=== PATIENT | female | born 1940 | race Caucasian/White ===

== ENCOUNTER 2016-08-07 16:59 | Emergency (ER) | payer MEDICARE ==
[~2016-08-07] VITALS: Ht 165.1 cm; Wt 91.8 kg
[~2016-08-07 16:59] MED LIST: ALBU8.5H2 INHALATION; ALEN70TA2 PO; ASCO-294 PO; ASTELIN NASAL SPRAY INH; BENZ-12 PO; BENZ200C44 PO; CALC-190 PO; CETI10TA27 PO; CHOL100045 PO; CYAN10008 PO; ECON15CR10 TOP; FLUT12AE8 IH; FLUT9.9S NS; LEVO750T9 PO; MEMA5TAB15 PO; METF850T2 PO; METO25TA6 PO; MONT10TA20 PO; MULT-1018 PO; OMEP20CA11 PO; OXYB5TAB PO; PRAV40TA PO; PRE20 PO
[2016-08-07 17:09] VITALS: BP 141/63; PULSE 61; RESP 15; O2SAT 98
[2016-08-07 18:06] VITALS: BP 115/40; PULSE 58; RESP 20; O2SAT 98
--- NOTE | 2016-08-07 18:37 | ED.REPORT ---
HPI-URI / Cough / Cold Date of Service Aug 07, 2016 ED Provider: Debra Hernandez History of Present Illness: cough for a month, stuffy nose. chayo is primary care. neighbors were burning garbage outside today. Has been doing tessalon perles and albuterol which she reports have been helpful. Nursing Notes Stated Complaint: COUGH/RUNNY NOSE Chief Complaint: Respiratory Complaints Nursing Notes Reviewed: Yes Allergies: Coded Allergies: latex (Verified Allergy, Severe, Itching/RASH, 08/07/16) metoclopramide (Verified Allergy, Severe, CONVULSIONS (SEVERES "SHAKES"), 08/07/16) tetracycline (Verified Allergy, Severe, HIVES (LOCAL RXN TO IM INJECTION) , 08/07/16) erythromycin ethylsuccinate (Verified Allergy, Unknown, UNKNOWN, 08/07/16) fluticasone (Verified Allergy, Unknown, UNKNOWN, 08/07/16) salmeterol (Verified Allergy, Unknown, UNKNOWN, 08/07/16) clonidine (Verified Adverse Reaction, Severe, "GROGGY", 08/07/16) codeine (Verified Adverse Reaction, Severe, HALLUCINATIONS, 08/07/16) Uncoded Allergies: "scents" (Allergy, Unknown, UNKNOWN, 12/09/15) Scheduled ([Astelin Nasal [place]]) 1 SPRAY INH BID Albuterol HFA (Proair HFA) 8.5 Gm Hfa.aer.ad 2 PUFFS INHALATION Q4H Alendronate Sodium (Fosamax) 70 Mg Tablet 70 MG PO WEEKLY Ascorbate Calcium (Vitamin C) 500 Mg Tablet 500 MG PO DAILY Calcium Carb&Cit/Mag12/Vit D3 (Calcium 500 mg Tablet) 1 Each Tablet 1 EACH PO BID Cetirizine HCl (All Day Allergy) 10 Mg Tab.chew 10 MG PO DAILY Cholecalciferol (Vitamin D3) (Vitamin D) 1,000 Unit Capsule 1,000 UNIT PO DAILY Cyanocobalamin (Vitamin B-12) (Vitamin B-12) 1,000 Mcg Tablet 1,000 MCG PO DAILY Econazole Nitrate (Econazole Nitrate) 15 Gm Cream..g. 1 APPL TOP BID Econazole Nitrate (Econazole Nitrate) 15 Gm Cream..g. 1 APPL TOP BID Fluticasone Propionate (Flovent HFA 110 mcg) 12 Gm Aer.w.adap 1 PUFF IH BID Fluticasone Propionate (Flonase Allergy Relief) 50 Mcg/Actuation [place].susp 9.9 ML NS BID Levofloxacin (Levaquin) 750 Mg Tablet 750 MG PO DAILY Memantine HCl (Memantine HCl) 5 Mg Tablet 5 MG PO DAILY Metformin (Metformin) 850 Mg Tablet 850 MG PO BIDWM Metoprolol Tartrate (Metoprolol Tartrate) 25 Mg Tablet 25 MG PO BID Montelukast (Singulair) 10 Mg Tablet 10 MG PO HS Multivitamin (Multi Vitamin Daily) 1 Each Tablet 1 EACH PO DAILY Omeprazole (Omeprazole) 20 Mg Capsule.dr 20 MG PO BID Oxybutynin Chloride ER (Oxybutynin Chloride ER) 5 Mg Tab.er.24 5 MG PO DAILY Pravastatin (Pravastatin) 40 Mg Tablet 40 MG PO HS Scheduled PRN Benzonatate (Benzonatate) 200 Mg Capsule 200 MG PO Q8H PRN PRN PRN Benzonatate (Tessalon Perle) 100 Mg Capsule 200 MG PO TID PRN PRN For Cough Prednisone (PredniSONE) 20 Mg Tablet 60 MG PO DAILY PRN PRN For Cough General Time Seen by MD: 18:13 Chief Complaint Cough, productive... (Yellow) Hx Obtained From: Patient Onset Occurred: More than a week ago... 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 Shoulder surgery bilateral cataract extraction 12/12/15 bilateral retrogrades pyelogram with cytology, right ureteroscopy, right stent placement Reports: Cholecystectomy, Hysterectomy, Tonsillectomy Family History noncontributory Smoking History Former Smoker Social History Alcohol Use: Denies alcohol use Drug Use: Denies drug use Other Social History: Ambulatory Status Walker Review of Systems Basic Review of Systems Cardiovascular: No chest pain, No dyspnea on exertion, No orthopnea, No parox noct dyspnea, No palpitations : No dysuria, No frequency Musculoskeletal: No extremity swelling, No extremity pain, Full range of motion , Joints NL Hematologic: No bleeding, No bruising Endocrine: No cold intolerance, No heat intolerance, No weight gain, No weight loss Psychiatric: Normal thought content Physical Exam Initial Vital Signs Vital Signs (First) Date Time Temp Pulse Resp B/P Pulse Ox O2 Delivery O2 Flow Rate FiO2 08/07/16 17:09 36.2 61 15 141/63 98 Room Air Initial VS: Reviewed, Vital signs normal Head / Eyes: Atraumatic, Normocephalic, PERRL Neck: Supple, Non-tender, Full range of motion Cardiovascular: Regular rate & rhythm, Heart sounds normal, Intact distal pulses Abdomen / GI: Soft, Non-tender, No guarding, No rebound, No distention Back: No CVA tenderness Lymphatic: No lymphadenopathy Extremities: Vascular intact, Neuro intact, No swelling, No tenderness Skin: Warm, Dry, No cyanosis Neurologic: Alert, Oriented, Nonfocal Psychiatric: Mood/affect normal, Behavior normal, Normal thought content General/Constitutional: Awake, Alert, No acute distress ENT: Atraumatic, Airway patent, Mucous membranes moist, Pharynx NL Respiratory / Chest: Atraumatic, Breath sounds NL, Breath sounds = bilat, No respiratory distress, No rales, No rhonchi Head / Eyes: Atraumatic, Normocephalic, PERRL Cardiovascular: Heart rate NL, Regular rhythm, Heart sounds NL Interpretation & Diagnostics Lab Results Interpretation Result Diagram: 08/07/16 1851 08/07/16 1851 Test 08/07/16 18:51 White Blood Count 5.2th/mm3 (3.8-10.1) Red Blood Count 3.38mil/mm3 (3.90-5.20) Hemoglobin 11.1g/dL (12.0-15.6) Hematocrit 34.6% (35.0-46.0) Mean Corpuscular Volume 102.4fL (81-100) Mean Corpuscular Hemoglobin 32.8pg (27.0-35.0) Mean Corpuscular Hemoglobin Concent 32.1% (32.0-37.0) Red Cell Distribution Width 12.5% (12.3-15.4) Platelet Count 190bil/L (150-400) Neutrophils (%) (Auto) 51.7% (40-74) Lymphocytes (%) (Auto) 37.9% (14-46) Monocytes (%) (Auto) 9.0% (4-12) Eosinophils (%) (Auto) 1.0% (0-5) Basophils (%) (Auto) 0.2% (0-3) Sodium Level 141mEq/L (134-144) Potassium Level 4.3mEq/L (3.5-5.2) Chloride Level 102mEq/L (97-108) Carbon Dioxide Level 28mmol/L (18-29) Blood Urea Nitrogen 16mg/dL (8-27) Creatinine 0.59mg/dL (0.57-1.00) Estimat Glomerular Filtration Rate 142mL/min (>59) Glucose Level 151mg/dL (60-99) Calcium Level 9.1mg/dL (8.5-10.1) Total Bilirubin 0.3mg/dL (0.0-1.2) Aspartate Amino Transf (AST/SGOT) 19U/L (0-50) Alanine Aminotransferase (ALT/SGPT) 15U/L (0-32) Alkaline Phosphatase 66U/L (25-165) Troponin T < 0.010ug/L (0.0-0.011) Pro-B-Type Natriuretic Peptide 396.9pg/mL (0-738) Total Protein 5.5g/dL (6.4-8.4) Albumin 3.6g/dL (3.4-5.0) Hold Moeller Top Tube Received (Received) X-Ray Chest Interpretation Chest Xray Interpretation: Surgical changes and devices: None. Lungs and pleura: No pleural effusions or pneumothorax. Lungs are clear. Mediastinum: Mediastinal contours appear normal. Heart size is normal. There is a moderate sized hiatal hernia. Bones and chest wall: No suspicious bony lesions. Overlying soft tissues appear unremarkable. Old right humeral neck fracture noted. IMPRESSION: No acute disease. Moderate hiatal hernia. Re-Eval/Medical Decision Med Decision/Clinical Course Med Decision/Clinical Course: Normal EKG and negative trop and BNP. Will do a trial of antibiotics Differential Diagnosis: Negative: Pneumonia Discharge & Departure Impression: Primary Impression: Cough Disposition: Home Additional Instructions: Your labs are normal. The chest x-ray does not show any sign of infection but with the cough ongoing for 1 month a trial of antibiotics is indicated. Please follow with primary care as needed. REturn with any concerns. Referrals: Ed Perry MD (PCP) EDSupervising Provider for APC: Nirmal Jones MD copies to: Ed Perry MD, Sue ARNP Aug 07, 2016 18:37
--- NOTE | 2016-08-07 18:42 | DRSVH ---
PROCEDURE: X-RAY CHEST ONE VIEW, PORTABLE ([id number]) INDICATIONS: cough TECHNIQUE: One view of the chest was acquired. COMPARISON: [facility], CR, XR CHEST 2VW, 03/30/2016, 13:5.8 FINDINGS: Surgical changes and devices: None. Lungs and pleura: No pleural effusions or pneumothorax. Lungs are clear. Mediastinum: Mediastinal contours appear normal. Heart size is normal. There is a moderate sized hi atal hernia. Bones and chest wall: No suspicious bony lesions. Overlying soft tissues appear unremarkable. Old right humeral neck fracture noted. IMPRESSION: No acute disease. Moderate hiatal hernia. Dictated by: Cheko Eden M.D. on 08/07/2016 at 18:39 Approved by: Cheko Eden M.D. on 08/07/2016 at 18:41
[2016-08-07 19:03] LABS: BASOPHILS % (AUTO) 0.2 % (0-3); Mean Corpuscular Hemoglobin 32.8 pg (27.0-35.0); Mean Corpuscular Volume 102.4 fL (81-100); NEUTROPHILS % (AUTO) 51.7 % (40-74); Platelet Count 190 bil/L (150-400)
[2016-08-07 19:32] LABS: TROPONIN T < 0.010 ug/L (0.0-0.011)
[2016-08-07 20:08] VITALS: BP 141/51; PULSE 55; RESP 17; O2SAT 100
== END 2016-08-07 20:09 | disposition home or self-care (01) ==
LOC: SED 16:59
DX: R05 Cough (principal); R09.81 Nasal congestion; K44.9 Diaphragmatic hernia without obstruction or gangrene; J45.909 Unspecified asthma, uncomplicated; K21.9 Gastro-esophageal reflux disease without esophagitis; E11.9 Type 2 diabetes mellitus without complications; E78.5 Hyperlipidemia, unspecified; I10 Essential (primary) hypertension; Z85.9 Personal history of malignant neoplasm, unspecified; Z87.01 Personal history of pneumonia (recurrent); Z87.891 Personal history of nicotine dependence; Z79.84 Long term (current) use of oral hypoglycemic drugs; Z88.8 Allergy status to other drugs, medicaments and biological substances; Z88.1 Allergy status to other antibiotic agents; Z88.5 Allergy status to narcotic agent

== ENCOUNTER 2016-09-17 19:14 | Emergency (ER) | payer MEDICARE ==
[~2016-09-17] VITALS: Ht 165.1 cm; Wt 90.0 kg
[2016-09-17 19:22] VITALS: BP 147/50; PULSE 61; RESP 18; O2SAT 97
--- NOTE | 2016-09-17 19:59 | DRSVH ---
PROCEDURE: X-RAY CHEST, TWO VIEWS ([id number]) INDICATIONS: shortness of breath , cough TECHNIQUE: 2 views of the chest were acquired. COMPARISON: None. FINDINGS: Surgical changes and devices: None. Lungs and pleura: No pleural effusions or pneumothorax. Lungs are clear. Mediastinum: Mediastinal contours are normal. Heart size is normal. Bones and chest wall: No suspicious bony abnormalities. Soft tissues appear unremarkable. IMPRESSION: No acute cardiopulmonary findings. Dictated by: Columba Bentley M.D. on 09/17/2016 at 19:57 Approved by: Columba Bentley M.D. on 09/17/2016 at 19:57
--- NOTE | 2016-09-17 21:13 | ED.REPORT ---
HPI-General Illness Date of Service Sep 17, 2016 ED Provider: Librado Rodarte MD Pt is a 76 y.o. female with a hx of uterine cancer, asthma, HTN, HLD, and DM who presents to the ED c/o yellow-productive cough onset 1 month ago. Pt reports associated SOB and chest pressure. She denies a fever, chills, nausea, and vomiting. Nursing Notes Stated Complaint: FEVER, NOT FEELING WELL Chief Complaint: FLU/Cold Symptoms Nursing Notes Reviewed: Yes Allergies: Coded Allergies: latex (Verified Allergy, Severe, Itching/RASH, 09/17/16) metoclopramide (Verified Allergy, Severe, CONVULSIONS (SEVERES "SHAKES"), 09/17/16) tetracycline (Verified Allergy, Severe, HIVES (LOCAL RXN TO IM INJECTION) , 09/17/16) erythromycin ethylsuccinate (Verified Allergy, Unknown, UNKNOWN, 09/17/16) fluticasone (Verified Allergy, Unknown, UNKNOWN, 09/17/16) salmeterol (Verified Allergy, Unknown, UNKNOWN, 09/17/16) clonidine (Verified Adverse Reaction, Severe, "GROGGY", 09/17/16) codeine (Verified Adverse Reaction, Severe, HALLUCINATIONS, 09/17/16) Uncoded Allergies: "scents" (Allergy, Unknown, UNKNOWN, 12/09/15) Scheduled ([Astelin Nasal [place]]) 1 SPRAY INH BID Albuterol HFA (Proair HFA) 8.5 Gm Hfa.aer.ad 2 PUFFS INHALATION Q4H Alendronate Sodium (Fosamax) 70 Mg Tablet 70 MG PO WEEKLY Amoxicillin/Clav K 875-125 mg (Augmentin 875-125 mg) 1 Each Tablet 1 TABLET PO BID Ascorbate Calcium (Vitamin C) 500 Mg Tablet 500 MG PO DAILY Calcium Carb&Cit/Mag12/Vit D3 (Calcium 500 mg Tablet) 1 Each Tablet 1 EACH PO BID Cetirizine HCl (All Day Allergy) 10 Mg Tab.chew 10 MG PO DAILY Cholecalciferol (Vitamin D3) (Vitamin D) 1,000 Unit Capsule 1,000 UNIT PO DAILY Cyanocobalamin (Vitamin B-12) (Vitamin B-12) 1,000 Mcg Tablet 1,000 MCG PO DAILY Econazole Nitrate (Econazole Nitrate) 15 Gm Cream..g. 1 APPL TOP BID Econazole Nitrate (Econazole Nitrate) 15 Gm Cream..g. 1 APPL TOP BID Fluticasone Propionate (Flovent HFA 110 mcg) 12 Gm Aer.w.adap 1 PUFF IH BID Fluticasone Propionate (Flonase Allergy Relief) 50 Mcg/Actuation [place].susp 9.9 ML NS BID Levofloxacin (Levaquin) 750 Mg Tablet 750 MG PO DAILY Memantine HCl (Memantine HCl) 5 Mg Tablet 5 MG PO DAILY Metformin (Metformin) 850 Mg Tablet 850 MG PO BIDWM Metoprolol Tartrate (Metoprolol Tartrate) 25 Mg Tablet 25 MG PO BID Montelukast (Singulair) 10 Mg Tablet 10 MG PO HS Multivitamin (Multi Vitamin Daily) 1 Each Tablet 1 EACH PO DAILY Omeprazole (Omeprazole) 20 Mg Capsule.dr 20 MG PO BID Oxybutynin Chloride ER (Oxybutynin Chloride ER) 5 Mg Tab.er.24 5 MG PO DAILY Pravastatin (Pravastatin) 40 Mg Tablet 40 MG PO HS Scheduled PRN Benzonatate (Benzonatate) 200 Mg Capsule 200 MG PO Q8H PRN PRN PRN Prednisone (PredniSONE) 20 Mg Tablet 60 MG PO DAILY PRN PRN For Cough General Time Seen by MD: 21:11 Chief Complaint Cough Hx Obtained From: Patient Arrived By: Walk-in Sudden in Onset?: No Onset Occurred: More than a week ago... 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 Shoulder surgery bilateral cataract extraction 12/12/15 bilateral retrogrades pyelogram with cytology, right ureteroscopy, right stent placement Reports: Cholecystectomy, Hysterectomy, Tonsillectomy Family History noncontributory Smoking History Former Smoker Social History Alcohol Use: Denies alcohol use Drug Use: Denies drug use Other Social History: Ambulatory Status Walker Review of Systems Full Review of Systems Constitutional: Denies: Chills, Fever Respiratory: Reports: Prod cough, yellow, Shortness of breath Cardiovascular: Reports: Chest pain (pressure) GI: Denies: Nausea, Vomiting Complete sys rev & neg: except as marked. Physical Exam Vital Signs Vital Signs Date Time Temp Pulse Resp B/P Pulse Ox O2 Delivery O2 Flow Rate FiO2 09/18/16 00:21 36.7 57 16 150/63 98 Room Air 09/17/16 21:33 61 19 127/87 96 Room Air 09/17/16 19:22 36.7 61 18 147/50 97 Room Air Initial VS: Reviewed, Vital signs normal Head / Eyes: Atraumatic, Normocephalic Extremities: Vascular intact, Neuro intact Skin: Warm, Dry, No cyanosis Neurologic: Alert, Oriented, Nonfocal Psychiatric: Mood/affect normal, Behavior normal, Normal thought content General/Constitutional: Awake, Alert, No acute distress, Well appearing, Well developed, Well hydrated, Well nourished, Not toxic appearing ENT: Atraumatic, Airway patent, Mucous membranes moist Neck: Atraumatic, Supple, No JVD Respiratory / Chest: Atraumatic, No respiratory distress, No rales, No rhonchi , No wheezing, No retractions, No stridor Diminished Breath Sounds: Positive: Decreased bilateral No wheezing with forced expiration Cardiovascular: Heart rate NL, Regular rhythm, Heart sounds NL, Peripheral circulation NL Abdomen: Atraumatic, Soft, Non-tender, No distention Interpretation & Diagnostics Lab Results Interpretation Result Diagram: 09/17/16 2300 09/17/16 230 Test 09/17/16 22:55 09/17/16 23:00 Hold Urine Received (Received) White Blood Count 5.4th/mm3 (3.8-10.1) Red Blood Count 3.56mil/mm3 (3.90-5.20) Hemoglobin 11.5g/dL (12.0-15.6) Hematocrit 35.8% (35.0-46.0) Mean Corpuscular Volume 100.6fL (81-100) Mean Corpuscular Hemoglobin 32.3pg (27.0-35.0) Mean Corpuscular Hemoglobin Concent 32.1% (32.0-37.0) Red Cell Distribution Width 12.5% (12.3-15.4) Platelet Count 197bil/L (150-400) Neutrophils (%) (Auto) 49.0% (40-74) Lymphocytes (%) (Auto) 41.2% (14-46) Monocytes (%) (Auto) 8.3% (4-12) Eosinophils (%) (Auto) 1.1% (0-5) Basophils (%) (Auto) 0.2% (0-3) Sodium Level 134mEq/L (134-144) Potassium Level 4.7mEq/L (3.5-5.2) Chloride Level 99mEq/L (97-108) Carbon Dioxide Level 25mmol/L (18-29) Blood Urea Nitrogen 18mg/dL (8-27) Creatinine 0.56mg/dL (0.57-1.00) Estimat Glomerular Filtration Rate 150mL/min (>59) Glucose Level 114mg/dL (60-99) Calcium Level 8.8mg/dL (8.5-10.1) Magnesium Level 1.6mg/dL (1.6-2.6) Total Bilirubin 0.4mg/dL (0.0-1.2) Aspartate Amino Transf (AST/SGOT) 22U/L (0-50) Alanine Aminotransferase (ALT/SGPT) 15U/L (0-32) Alkaline Phosphatase 66U/L (25-165) Troponin T 0.010ug/L (0.0-0.011) Pro-B-Type Natriuretic Peptide 379.5pg/mL (0-738) Total Protein 5.7g/dL (6.4-8.4) Albumin 3.7g/dL (3.4-5.0) Hold Moeller Top Tube Received (Received) Lab values outside NL range: no clinical significance. ECG Interpretation ECG Interpretation: Low voltage Time: 21:39 Interpreted by: ED physician Normal ECG Interpretation: Normal rate (54), Normal sinus rhythm X-Ray Chest Interpretation Chest Xray Interpretation: IMPRESSION: No acute cardiopulmonary findings. Dictated by: Columba Bentley M.D. on 09/17/2016 at 19:57 Approved by: Columba Bentley M.D. on 09/17/2016 at 19:57 Re-Eval/Medical Decision Med Decision/Clinical Course 76-year-old female who has persistent cough, intermittent fever and night sweats , and production of yellow-green sputum. Chest x-ray is negative for pneumonia. Labs are normal. She has a history of COPD so was treated with Augmentin(tetracycline and erythromycin allergies). She is being discharged home to follow up with her primary doctor. Time of Eval: 00:08 Re-Evaluation/Progress Note: Pt rechecked. Discussed plan for discharge, pt understands and agrees with plan. Discharge & Departure Primary Impression: Bronchitis Disposition: Home Discharge Condition All VS Reviewed: Yes Condition: Improved Patient Instructions: Acute Bronchitis (ED) Additional Instructions: No evidence of pneumonia. Your labs are all normal. Because of the persistence of your symptoms we will prescribe antibiotics. Augmentin 875, one pill twice daily for 7 days #14 prescription written. Referrals: Ed Perry MD (PCP) Scribe Attestation Portions of this note were transcribed by Jonathan Arvizu. I, Dr. Rodarte personally performed the history, physical exam and medical decision-making; I reviewed and confirmed the accuracy of the information in the transcribed note. Signed by: Iris Vicente, 09/18/16 and 0014. copies to: Ed Perry MD, Howard L MD Sep 17, 2016 21:13 JONATHAN ARVIZU Sep 17, 2016 21:24
[2016-09-17 21:33] VITALS: BP 127/87; PULSE 61; RESP 19; O2SAT 96
[2016-09-17 23:10] LABS: BASOPHILS % (AUTO) 0.2 % (0-3); EOSINOPHILS % (AUTO) 1.1 % (0-5); MONOCYTES % (AUTO) 8.3 % (4-12); Mean Corpuscular Hemoglobin 32.3 pg (27.0-35.0); Mean Corpuscular Volume 100.6 fL (81-100); Platelet Count 197 bil/L (150-400)
[2016-09-17 23:51] LABS: TROPONIN T 0.01 ug/L (0.0-0.011)
[2016-09-18 00:02] LABS: Magnesium 1.6 mg/dL (1.6-2.6)
[2016-09-18] MEDS ORDERED: AMOX-366 PO (00:10)
[2016-09-18 00:21] VITALS: BP 150/63; PULSE 57; RESP 16; O2SAT 98
== END 2016-09-18 00:22 | disposition home or self-care (01) ==
LOC: SED 19:14
DX: J45.909 Unspecified asthma, uncomplicated (principal); I10 Essential (primary) hypertension; E11.9 Type 2 diabetes mellitus without complications; E78.5 Hyperlipidemia, unspecified; K21.9 Gastro-esophageal reflux disease without esophagitis; Z85.42 Personal history of malignant neoplasm of other parts of uterus; Z87.891 Personal history of nicotine dependence; Z79.51 Long term (current) use of inhaled steroids; Z79.84 Long term (current) use of oral hypoglycemic drugs; Z79.01 Long term (current) use of anticoagulants; Z88.1 Allergy status to other antibiotic agents; Z88.5 Allergy status to narcotic agent; Z88.8 Allergy status to other drugs, medicaments and biological substances

== ENCOUNTER 2017-01-22 20:56 | Emergency (ER) | payer MEDICARE ==
[~2017-01-22] VITALS: Ht 165.1 cm; Wt 93.6 kg
[~2017-01-22 20:56] MED LIST changes: +AMOX-366 PO; -BENZ-12 PO
[2017-01-22 21:21] VITALS: BP 157/77; PULSE 63; RESP 20; O2SAT 96
--- NOTE | 2017-01-22 23:46 | ED.REPORT ---
HPI-Hand Prob/Inj Date of Service Jan 22, 2017 ED Provider: Librado Rodarte MD The pt is a 76 y/o female presenting to the ED due to a laceration to the tip of her L pointer finger. She was trying to open a plastic bottle when the injury occurred. Nursing Notes Stated Complaint: LEFT FIRST FINGER INJURY Chief Complaint: Extremity Trauma Nursing Notes Reviewed: Yes Allergies: Coded Allergies: latex (Verified Allergy, Severe, Itching/RASH, 09/17/16) metoclopramide (Verified Allergy, Severe, CONVULSIONS (SEVERES "SHAKES"), 09/17/16) tetracycline (Verified Allergy, Severe, HIVES (LOCAL RXN TO IM INJECTION) , 09/17/16) erythromycin ethylsuccinate (Verified Allergy, Unknown, UNKNOWN, 09/17/16) fluticasone (Verified Allergy, Unknown, UNKNOWN, 09/17/16) salmeterol (Verified Allergy, Unknown, UNKNOWN, 09/17/16) clonidine (Verified Adverse Reaction, Severe, "GROGGY", 09/17/16) codeine (Verified Adverse Reaction, Severe, HALLUCINATIONS, 09/17/16) Uncoded Allergies: "scents" (Allergy, Unknown, UNKNOWN, 12/09/15) Scheduled ([Astelin Nasal [place]]) 1 SPRAY INH BID Albuterol HFA (Proair HFA) 8.5 Gm Hfa.aer.ad 2 PUFFS INHALATION Q4H Alendronate Sodium (Fosamax) 70 Mg Tablet 70 MG PO WEEKLY Amoxicillin/Clav K 875-125 mg (Augmentin 875-125 mg) 1 Each Tablet 1 TABLET PO BID Ascorbate Calcium (Vitamin C) 500 Mg Tablet 500 MG PO DAILY Calcium Carb&Cit/Mag12/Vit D3 (Calcium 500 mg Tablet) 1 Each Tablet 1 EACH PO BID Cetirizine HCl (All Day Allergy) 10 Mg Tab.chew 10 MG PO DAILY Cholecalciferol (Vitamin D3) (Vitamin D) 1,000 Unit Capsule 1,000 UNIT PO DAILY Cyanocobalamin (Vitamin B-12) (Vitamin B-12) 1,000 Mcg Tablet 1,000 MCG PO DAILY Econazole Nitrate (Econazole Nitrate) 15 Gm Cream..g. 1 APPL TOP BID Econazole Nitrate (Econazole Nitrate) 15 Gm Cream..g. 1 APPL TOP BID Fluticasone Propionate (Flovent HFA 110 mcg) 12 Gm Aer.w.adap 1 PUFF IH BID Fluticasone Propionate (Flonase Allergy Relief) 50 Mcg/Actuation [place].susp 9.9 ML NS BID Levofloxacin (Levaquin) 750 Mg Tablet 750 MG PO DAILY Memantine HCl (Memantine HCl) 5 Mg Tablet 5 MG PO DAILY Metformin (Metformin) 850 Mg Tablet 850 MG PO BIDWM Metoprolol Tartrate (Metoprolol Tartrate) 25 Mg Tablet 25 MG PO BID Montelukast (Singulair) 10 Mg Tablet 10 MG PO HS Multivitamin (Multi Vitamin Daily) 1 Each Tablet 1 EACH PO DAILY Omeprazole (Omeprazole) 20 Mg Capsule.dr 20 MG PO BID Oxybutynin Chloride ER (Oxybutynin Chloride ER) 5 Mg Tab.er.24 5 MG PO DAILY Pravastatin (Pravastatin) 40 Mg Tablet 40 MG PO HS Scheduled PRN Benzonatate (Benzonatate) 200 Mg Capsule 200 MG PO Q8H PRN PRN PRN Prednisone (PredniSONE) 20 Mg Tablet 60 MG PO DAILY PRN PRN For Cough General Time Seen by Provider: 23:30 Chief Complaint Finger injury left Hx Obtained From: Patient Arrived By: Walk-in Onset Occurred: Just prior to arrival Symptom Duration: Since onset Recent Healthcare: No recent doctor visit, No recent hospitalization Similar Sx Previous: No Past Medical History Past Medical History Hiatal hernia cataracts arthritis h/o A Flutter per EMR, paroxysmal SVT h/o pneumonia GERD Dementia Alopecia Chronic sinusitis Reports: Asthma, Cancer, Diabetes mellitus, Hyperlipidemia, Hypertension Past Surgical History 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 Physical Exam Initial Vital Signs Vital Signs (First) Date Time Temp Pulse Resp B/P Pulse Ox O2 Delivery O2 Flow Rate FiO2 01/22/17 21:21 37.1 63 20 157/77 96 Room Air Initial VS: Reviewed, Vital signs normal General/Constitutional: Well-developed, Well-nourished Head / Eyes: Atraumatic, Normocephalic, PERRL ENT: Mucous membranes moist, Conjunctiva normal Neck: Supple, Non-tender, Full range of motion Respiratory: Breath sounds normal, Clear to auscultation, No respiratory distress Cardiovascular: Regular rate & rhythm, Heart sounds normal, Intact distal pulses Abdomen / GI: Soft, Non-tender Extremities: Neuro intact, No swelling, No tenderness Skin: Warm, Dry, No cyanosis Psychiatric: Mood/affect normal, Behavior normal, Normal thought content Wrist / Hand: Full range of motion, Neurologic intact 1 cm laceration parallel to the end of the nail of the L pointer finger Procedures Laceration Management Procedure Performed by: ED physician Consent / Setup / Site Prep: Consent from patient, Hand hygiene observed, Stand sterile technique Wound Length: 1 cm Digit Involved: Index finger left Wound Preparation: [place] Debridement: None Repair Skin: Dermabond Post-Procedure / Complications: Dressing applied, No complications, Condition improved, Tolerated procedure well, Patient stable Re-Eval/Medical Decision Med Decision/Clinical Course Uncomplicated fingertip laceration closed with Dermabond. Re-Evaluation/Progress : Time of Eval: 23:50 Re-Evaluation/Progress Note: Pt rechecked. Closed the laceration w/ tissue adhesive. F/U instructions and RTER warnings given. All questions addressed. Counseled Regarding: Diagnosis, Need for follow-up, When/why to return to ED Discharge & Departure Primary Impression: Laceration of finger of left hand Encounter type: initial encounter Qualified Code: S61.219A - Laceration without foreign body of unspecified finger without damage to nail, initial encounter Disposition: Home Discharge Condition All VS Reviewed: Yes Condition: Improved Patient Instructions: Laceration (ED) Additional Instructions: Tissue Adhesive Wound Care Instructions Your surgical site has been closed with Tissue Adhesive, a "super glue" specially designed to replace the outer layer of stitches. Tissue Adhesive completely seals your laceration. Wound care and suture removal are not necessary making it very convenient. There won't be ANYTHING to do to your laceration closed with Tissue Adhesive. Our instructions will mainly certified drug counselor you on what NOT to do. Instructions: 1. You may shower or bathe after 24 hours. Do not swim in chlorinated water. Chlorine dissolves the Tissue Adhesive. 2. You may cover your site with a band aid or non-stick dressing and tape, but do not apply anything to the site such as topical antibiotics, lotions, creams, or make up. 3. If the Tissue Adhesive begins to peel do not peel it off or pick at it. Please allow it to fall off naturally. This can take up to 2 weeks. 4. Ok to use Purelle or similar alcohol-based hand japanese interpreter (and probably preferable to soap). Please call your doctor or return if: - If your wound edges begin to pull apart or open - You experience excessive bleeding, drainage, pain, swelling, redness, or fever. Referrals: Ed Perry MD (PCP) Scribe Attestation Portions of this note were transcribed by Kayden Larson. I, Dr. Rodarte personally performed the history, physical exam and medical decision-making; I reviewed and confirmed the accuracy of the information in the transcribed note. Signed by : Iris Rodriguez, 01/23/17 and 0012. copies to: Ed Perry MD, Librado Gonsalez MD Jan 22, 2017 23:46 Kayden Larson Jan 23, 2017 00:13
[2017-01-23 00:18] VITALS: BP 160/80; PULSE 67; RESP 15; O2SAT 99
== END 2017-01-23 00:21 | disposition home or self-care (01) ==
LOC: SED 20:56
DX: S61.211A Laceration without foreign body of left index finger without damage to nail, initial encounter (principal); W26.0XXA Contact with knife, initial encounter; Y92.009 Unspecified place in unspecified non-institutional (private) residence as the place of occurrence of the external cause; Y93.89 Activity, other specified; Y99.8 Other external cause status; K21.9 Gastro-esophageal reflux disease without esophagitis; J45.909 Unspecified asthma, uncomplicated; E11.9 Type 2 diabetes mellitus without complications; E78.5 Hyperlipidemia, unspecified; I10 Essential (primary) hypertension; F03.90 Unspecified dementia, unspecified severity, without behavioral disturbance, psychotic disturbance, mood disturbance, and anxiety; Z85.9 Personal history of malignant neoplasm, unspecified; Z87.01 Personal history of pneumonia (recurrent); Z87.891 Personal history of nicotine dependence; Z79.84 Long term (current) use of oral hypoglycemic drugs; Z88.8 Allergy status to other drugs, medicaments and biological substances; Z88.1 Allergy status to other antibiotic agents; Z88.5 Allergy status to narcotic agent